=== PATIENT | male | born 1990 | race Two or more races ===

== ENCOUNTER 2017-07-21 17:36 | Emergency (ER) | payer MEDICAID, SELFPAY ==
[~2017-07-21] VITALS: Ht 182.9 cm; Wt 97.2 kg
[2017-07-21 17:36] VITALS: BP 142/78
--- NOTE | 2017-07-21 20:21 | REP ---
RIGHT ELBOW SERIES COMPLETE: 07/21/2017. Clinical history: Trauma, patient fell with pain and laceration. Findings: Four views are provided. The lateral view shows no joint effusion at the elbow. The radial head and capitellum align normally on all views. No radial head fracture or impaction. There is some minor soft tissue swelling of the olecranon and a small spur at the triceps insertion on the posterior olecranon. I do not see radiopaque foreign body. There may be a small laceration posteriorly along the elbow as seen on one of the oblique views with a small lucency in the subcutaneous fat. No supracondylar fracture with the medial and lateral epicondyles unremarkable and the soft tissues otherwise intact. Impression: 1. Some minor soft tissue swelling about the olecranon with a small spur at the triceps insertion but no fracture or avulsion. 2. No joint effusion and the radial head and capitellum align normally on all views. Signed by Eleuterio Serrano MD 07/26/2017 01:36 P
[2017-07-21] MEDS ORDERED: IBUP-1022 PO (23:07)
== END 2017-07-21 20:14 | disposition left against medical advice (07) ==
LOC: M ED 17:36
DX: S51.011A Laceration without foreign body of right elbow, initial encounter (principal); W19.XXXA Unspecified fall, initial encounter; Y92.099 Unspecified place in other non-institutional residence as the place of occurrence of the external cause; Y93.9 Activity, unspecified; Y99.9 Unspecified external cause status; M25.721 Osteophyte, right elbow; Z53.21 Procedure and treatment not carried out due to patient leaving prior to being seen by health care provider

== ENCOUNTER 2017-07-29 18:16 | Emergency (ER) | payer MEDICAID ==
[~2017-07-29] VITALS: Ht 182.9 cm; Wt 95.8 kg
[~2017-07-29 18:16] MED LIST: IBUP-1022 PO
[2017-07-29 18:17] VITALS: BP 124/70
== END 2017-07-29 21:02 | disposition left against medical advice (07) ==
LOC: M ED 18:16
DX: Z48.02 Encounter for removal of sutures (principal); Z53.21 Procedure and treatment not carried out due to patient leaving prior to being seen by health care provider